=== PATIENT | male | born 1965 | race Caucasian/White ===

== ENCOUNTER 2018-11-20 06:54 | Day surgery (SDC) | payer OTHER ==
[~2018-11-20] VITALS: Ht 152.4 cm; Wt 81.3 kg
[2018-11-20] MEDS ORDERED: ZANTAC (07:54)
[2018-11-20] MEDS ORDERED: ASPIRIN (07:58)
[2018-11-20] MEDS ORDERED: LISINOPRIL (07:58)
[2018-11-20] MEDS ORDERED: CALCIUM (08:11)
[2018-11-20] MEDS ORDERED: ATORVASTATIN (08:11)
[2018-11-20] MEDS ORDERED: AMLODIPINE (08:11)
[2018-11-20 08:15] VITALS: BP 157/97; PULSE 66; RESP 20
[2018-11-20] MEDS ORDERED: MIDAZOLAM 1 MG/ML 2 ML INJ ONE ×3 (10:04)
[2018-11-20] MEDS ORDERED: FENTAnyl 50 MCG/ML VIAL ONE (10:04)
[2018-11-20 10:10] VITALS: BP 106/68; PULSE 56; RESP 15
== END 2018-11-20 11:09 | disposition home or self-care (01) ==
LOC: GIL 06:54 → EDSEX 06:54 → GIL 07:01
PROVIDERS: ATTEND Internal Medicine Gastroenterology
DX: Z12.11 Encounter for screening for malignant neoplasm of colon (principal); K64.8 Other hemorrhoids; D12.5 Benign neoplasm of sigmoid colon; D12.2 Benign neoplasm of ascending colon; K57.30 Diverticulosis of large intestine without perforation or abscess without bleeding; I10 Essential (primary) hypertension
CPT/HCPCS: 45380; 45385; J2250; J3010; Z7610; 88305